=== PATIENT | female | born 1960 | race Caucasian/White ===

== ENCOUNTER 2017-04-16 11:03 | Outpatient (CLI) | payer BC | END 2017-04-16 11:04 | disposition home or self-care (01) | LOC: BICMAMMO 11:03 | PROVIDERS: ATTEND Obstetrics & Gynecology | DX: Z12.31 Encounter for screening mammogram for malignant neoplasm of breast (principal); Z80.3 Family history of malignant neoplasm of breast | CPT/HCPCS: 77063; 77067 ==

== ENCOUNTER → 2024-01-27 | Day surgery (SDC) | payer BC ==
[~2024-01-27] MED LIST: Sodium Bicarbonate 2.5 MEQ/5 ML SDV ONE
[2024-01-27 09:27] VITALS: BP 153/97
== END ==
LOC: RAD 08:12
PROVIDERS: ATTEND Neurological Surgery
PROC: 009U3ZZ Drainage of Spinal Canal, Percutaneous Approach (ICD-10-PCS; principal; 2024-01-27)
DX: G91.2 (Idiopathic) normal pressure hydrocephalus (principal); R26.89 Other abnormalities of gait and mobility; Z88.2 Allergy status to sulfonamides
CPT/HCPCS: 62270

== ENCOUNTER 2024-01-29 08:30 | Outpatient (CLI) | payer BC | END 2024-01-29 08:31 | disposition home or self-care (01) | LOC: MRI 08:30 | PROVIDERS: ATTEND Neurological Surgery | DX: G91.2 (Idiopathic) normal pressure hydrocephalus (principal); R26.89 Other abnormalities of gait and mobility; M47.812 Spondylosis without myelopathy or radiculopathy, cervical region; M47.813 Spondylosis without myelopathy or radiculopathy, cervicothoracic region | CPT/HCPCS: 72141 ==

== ENCOUNTER 2024-02-20 13:44 | Outpatient (CLI) | payer BC | END 2024-02-20 13:45 | disposition home or self-care (01) | LOC: MRI 13:44 → SCSMRI 13:45 | PROVIDERS: ATTEND Neurological Surgery | DX: R26.89 Other abnormalities of gait and mobility (principal); I51.7 Cardiomegaly | CPT/HCPCS: 36415; 70553; 76376; 82565 ==

== ENCOUNTER 2024-09-17 10:55 | Outpatient (CLI) | payer BC | END 2024-09-17 10:56 | disposition home or self-care (01) | LOC: BICCT 10:55 | DX: G91.2 (Idiopathic) normal pressure hydrocephalus (principal); Q04.8 Other specified congenital malformations of brain | CPT/HCPCS: 70450 ==